=== PATIENT | female | born 1950 | race Caucasian/White ===

== ENCOUNTER 2017-02-15 15:01 | Emergency (ER) | payer SELFPAY ==
[~2017-02-15] VITALS: Ht 149.9 cm; Wt 59.0 kg
[2017-02-15 15:05] VITALS: Ht 149.9 cm; Wt 59.0 kg
[2017-02-15] MEDS ORDERED: NEOM28OI TP (15:58)
[2017-02-15] MEDS ORDERED: NAPR-685 PO (15:58)
--- NOTE | 2017-02-15 16:05 | ERD ---
ER Documentation Chief Complaint Date/Time DATE: 02/15/17 TIME: 16:00 Chief Complaint WOUND CHECK FOR A LAP INCISION THAT WAS DONE OVER 10 MONTHS AGO HPI This 58-year-old female presents for a wound check for incision site that was performed 10 months ago when she had some sort of intestinal surgery does not remember. Currently she has a small portion of scab tissue but she would like looked at. Surgery was done in [facility] where she intends to return in a few weeks. She has no abdominal pain no pain at the site. She has had no fevers or chills and feels otherwise well. ROS All systems reviewed and are negative except as per history of present illness. Medications Home Meds Active Scripts Neomycin Oscar/Bacitrac Zn/Poly (Triple Antibiotic Ointment) 28 Gm Oint...g., 28 GM TP BID, #1 UNIT Prov:ISAEL MURO PA-C 02/15/17 Naproxen* (Naproxen*) 375 Mg Tablet, 375 MG PO BID Y for PAIN, #60 TAB Prov:ISAEL MURO PA-C 02/15/17 Physical Exam Vitals Vital Signs Date Time Temp Pulse Resp B/P Pulse Ox O2 Delivery O2 Flow Rate FiO2 02/15/17 15:05 98.5 71 18 145/64 97 Physical Exam Const: [] No distress Abd: Soft, non tender, non distended. Normal bowel sounds. Approximately 5 cm above the umbilicus the patient has a small 1 x 0.5 cm scab that is staining of her body despite a very thin strand of tissue. There is no surrounding erythema or signs of infection. The surrounding tissue appears completely normal and she has no tenderness at this point. Skin: No petechiae or rashess Ext: No cyanosis, or edema Neur: Awake and alert and oriented 3, no focal deficits Psych: Normal Mood and Affect Procedures/MDM External scab tissue at site of a [id number] surgical incision. Patient cleaned and excised in the emergency room. Patient is returning sooner [facility] where she [place] has follow-up scheduled. Return precautions the ER given. Tissue removal note, 1 cm x 0.5 cm scab did tissue 5 cm below the umbilicus. Area was cleaned copiously with alcohol. 11 blade scalpel was used to cut the very thin band of tissue that was still holding the lesion on to the external skin. There was no bleeding. Patient taught the procedure with no complications. Bandage was placed. Departure Diagnosis: Primary Impression: Encounter for removal of skin lesion Condition: Stable Patient Instructions: Wound Care Additional Instructions: Cheque con oscar cirujano otra vez en proxima marlon. Dgale a la secretaria que nosotros le instruimos hacer esta marlon.Avise o llame si oscar condicin se empeora antes de la marlon. Regresa aqui si peor o no mejor. MARLYS LOPEZ DO Feb 15, 2017 16:05
== END 2017-02-15 15:58 | disposition home or self-care (01) ==
LOC: E/R 15:01
DX: L98.9 Disorder of the skin and subcutaneous tissue, unspecified (principal)